=== PATIENT | female | born 1955 ===

== ENCOUNTER 2018-04-17 08:20 | Emergency (ER) | payer BC ==
--- NOTE | 2018-04-17 09:17 | UC ---
UC General HPI - HPI Summary HPI Summary: 63 yo female c/o back pain, starting approx 3pm yesterday. Was lying down when noticed the pain. Does not recall recent or remote injury. Adamantly denies hx of similar episode. No p/d/w. But feet felt cool yesterday. No bowel issues. No melena/ diarrhea. Last bm yesterday, normal. Denies urinary freq / urg / hematuria, discoloration. + pain bloating sensation in mid low pelvis. No rash. No sob / cp / palpitations. Placed otc pain patch over lower back, but didn't help. No fever / chills. 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 Pain Intensity: 8 - Allergy/Home Medications Allergies/Adverse Reactions: Allergies Allergy/AdvReac Type Severity Reaction Status Date / Time No Known Allergies Allergy Verified 04/17/18 08:43 Home Medications: Home Medications Atorvastatin* [Lipitor*] 10 mg PO 1700 04/17/18 [History Confirmed 04/17/18] Calcium Carbonate [Calcium/C/D] 1 chw PO DAILY 04/17/18 [History Confirmed 04/17] Methyl Salicylate/Menth/Camph [Medicated Pain Relieving] 1 pad TOPICAL ONCE PRN 04/17/18 [History Confirmed 04/17/18] Multivitamin [Multivitamins] 1 cap PO DAILY 04/17/18 [History Confirmed 04/17/18 ] [place]-3 Fatty Acids/Fish Oil [Fish Oil 1,000 mg Capsule] 1 tab PO DAILY [History Confirmed 04/17/18] PMH/Surg Hx/FS Hx/Imm Hx Previously Healthy: Yes - Surgical History Surgical History: None - Family History Known Family History: Positive: Unknown - Social History Alcohol Use: None Substance Use Type: None Smoking Status (MU): Never Smoked Tobacco Review of Systems All Other Systems Reviewed And Are Negative: Yes Constitutional: Positive: Negative, Other - see hpi Skin: Positive: Other - see hpi Eyes: Positive: Negative ENT: Positive: Negative Respiratory: Positive: Negative Cardiovascular: Positive: Negative Gastrointestinal: Positive: Other - see hpi Genitourinary: Positive: Other - see hpi Motor: Positive: Other - see hpi Neurovascular: Positive: Other - see hpi Musculoskeletal: Positive: Other: - see hpi Neurological: Positive: Other - see hpi Psychological: Positive: Negative Is Patient Immunocompromised?: No Physical Exam Triage Information Reviewed: Yes Appearance: Well-Nourished - lying down on exam table, able to sit up with assistance. Looks uncomfortable. Vital Signs: Initial Vital Signs Temp 98.8 F 04/17/18 08:35 Pulse 81 04/17/18 08:35 Resp 18 04/17/18 08:35 BP 106/67 04/17/18 08:35 Pulse Ox 96 04/17/18 08:35 Vital Signs Reviewed: Yes Eye Exam: Normal - grossly normal ENT Exam: Normal - grossly normal. MMM. Neck exam: Normal Neck: Positive: Supple, Nontender Respiratory Exam: Normal Respiratory: Positive: Chest non-tender, Lungs clear, Normal breath sounds, No respiratory distress, No accessory muscle use Cardiovascular Exam: Normal Cardiovascular: Positive: RRR, No Murmur, Pulses Normal, Brisk Capillary Refill Abdominal Exam: Other - + nabs. Soft. Mild tender mid pelvis region. + subj feeling of bloating. Bowel Sounds: Positive: Present Musculoskeletal Exam: Other - wrapping machine tender mid spinal areas approx T8 region and upper lumbar region. No crepitus. No rash. No + lateral back tenderness near affect mid spine. Mild tender iliac crest bilat, describes pain as radiating downwards. Pat DTR - 2+ equal Distal foot + sens LT Palpable dp/pt distal foot. CR good. No local foot swelling or discoloration. Moves feet and knees ok (on exam table). Gait not tested d/t pain. Course/Dx - Course Course Of Treatment: 11:00am reviewed CT reports. Call placed to Dr. Bermudez at [place]. 11:[address] Bermudez. She kindly will arrange to have pt f/u with her in a week. Meanwhile, will start analgesics (norco - XRT reviewed) and prednisone taper. D/w pt and daughter. Questions as posed answered to the best of my ability. Reviewed coa / tx plan. Istop Reference #: [id number] - Diagnoses Provider Diagnosis: Disc degeneration, lumbar Discharge - Sign-Out/Discharge Documenting (check all that apply): Patient Departure All imaging exams completed and their final reports reviewed: Yes - Discharge Plan Condition: Stable Disposition: HOME Prescriptions: Hydrocodone/Acetaminophen [[place] 5-325 Tablet] 1 each PO Q6HR PRN #20 tablet MDD 6 PRN Reason: Pain predniSONE TAB* [Deltasone 10 MG TAB*] 10 mg PO DAILY #20 tab Patient Education Materials: Osteoarthritis (ED), Lumbar Disc Herniation (ED), Degenerative Disc Disease (ED) Referrals: Mariely Bermudez MD [Primary Care Provider] - Additional Instructions: Follow up with Dr. Bermudez in about one week. Please go to the Emergency Department for worse or new problems. Rest as much as possible. Avoid heavy lifting at least the next 3 days. Do not drink alcohol, or operate heavy machinery while taking pain medication. The pain medication WILL cause constipation. Important to take stool softener every day, or even enema if needed for constipation. Drink lots of water. - Billing Disposition and Condition Condition: STABLE Disposition: Home
[2018-04-17] MEDS ORDERED: HYDROcodone/ACETAMIN 5-325 MG* 1 TAB PO ONE (09:41)
[2018-04-17 12:54] LABS: ABS Basophils 0 10^3/ul (0-0.2); ABS Eosinophils 0 10^3/ul (0-0.6); ABS Lymphocytes 0.6 10^3/ul (1.0-4.8); ABS Monocytes 0.4 10^3/ul (0-0.8); ABS Neutrophils 6.7 10^3/ul (1.5-7.7); ABS Nucleated RBC 0 10^3/ul; Eosinophil % 0.1 %; Hematocrit 40 % (35-47); Hemoglobin 13.3 g/dl (12.0-16.0); Lymphocyte % 8.3 %; Mean Corpuscular HGB Conc 33 g/dl (31-36); Mean Corpuscular Hemoglobin 30 pg (27-31); Mean Corpuscular Volume 90 fL (80-97); Nucleated Red Blood Cells % 0; Platelet Count 190 10^3/ul (150-450); Red Blood Count 4.45 10^6/ul (4.00-5.40); Red Cell Distribution Width 13 % (10.5-15); White Blood Count 7.8 10^3/ul (3.5-10.8)
[2018-04-17 13:04] LABS: EGFR Non-African American 95.4 (>60)
--- NOTE | 2018-04-18 17:04 | UC ---
- Progress Note Progress Note: 04/18/2018 [id number] elevated BUN/Creat ration=27.0 elevated CRP=8.[address] Nickerson spoke to PCP Dr Bermudez at [facility] and Pt was going to f/u w/ her PCP for further management on her symptoms. Please call back patient and inform her of lab abnormal lab results and strongly advised her she needs to f/u w/ her PCP in 2-3 days for further management Ely Roy PA-C Course/Dx - Diagnoses Provider Diagnoses: Disc degeneration, lumbar Discharge - Sign-Out/Discharge Documenting (check all that apply): Patient Departure - D/C home All imaging exams completed and their final reports reviewed: Yes - Discharge Plan Condition: Stable Disposition: HOME Prescriptions: Hydrocodone/Acetaminophen [[place] 5-325 Tablet] 1 each PO Q6HR PRN #20 tablet MDD 6 PRN Reason: Pain predniSONE TAB* [Deltasone 10 MG TAB*] 10 mg PO DAILY #20 tab Patient Education Materials: Osteoarthritis (ED), Lumbar Disc Herniation (ED), Degenerative Disc Disease (ED) Referrals: Mariely Bermudez MD [Primary Care Provider] - Additional Instructions: Follow up with Dr. Bermudez in about one week. Please go to the Emergency Department for worse or new problems. Rest as much as possible. Avoid heavy lifting at least the next 3 days. Do not drink alcohol, or operate heavy machinery while taking pain medication. The pain medication WILL cause constipation. Important to take stool softener every day, or even enema if needed for constipation. Drink lots of water. - Billing Disposition and Condition Condition: STABLE Disposition: Home
== END 2018-04-17 12:17 | disposition home or self-care (01) ==
LOC: UCEAST 08:20
DX: M51.36 Other intervertebral disc degeneration, lumbar region (principal)
CPT/HCPCS: 36415; 72128; 72131; 80048; 81003; 85025; 85652; 86140; 99202; G0463

== ENCOUNTER 2018-04-22 10:14 | Emergency (ER) | payer BC ==
[2018-04-22] MEDS ORDERED: Ketorolac INJ* 30 MG/ML 1 ML VIAL IM ONE (10:42)
[2018-04-22] MEDS ORDERED: LORazepam TAB(*) 1 MG PO ONE (10:42)
--- NOTE | 2018-04-22 11:10 | ED ---
Back Pain - HPI Summary HPI Summary: Pt is 63 y/o F who presents to ED c/o lower back pain for approximately a week. Rates her pain an 8/10 in severity at triage and describes it as aching. Pt was seen at for the same complaint on 04/17/18 and was given prednisone and hydrocodone. A CT was also completed during this visit and showed Degenerative Disc Disease as well as herniated discs. This morning her condition worsened, where she was unable to get out of bed. Movement exacerbates pain as well as changing position from sitting to standing. - History of Current Complaint Chief Complaint: EDBackInjuryPain Stated Complaint: BACK PAIN Time Seen by Provider: 04/22/18 10:20 Hx Obtained From: Patient Onset/Duration: Lasting Days, Still Present, Worse Since - this morning Onset/Duration: Started Days Ago, Still Present Back Pain Location: Is Discrete @ - lower back Severity Currently: Severe - 8/10 Pain Intensity: 8 Pain Scale Used: 0-10 Numeric Character: Aching Aggravating Symptom(s): Movement, Other - position change from sitting to standing Associated Signs And Symptoms: Negative: Fever - Allergies/Home Medications Allergies/Adverse Reactions: Allergies Allergy/AdvReac Type Severity Reaction Status Date / Time No Known Allergies Allergy Verified 04/22/18 10:20 Home Medications: Home Medications predniSONE TAB* [Deltasone 10 MG TAB*] 20 mg PO DAILY 04/22/18 [History Confirmed 04/22/18] PMH/Surg Hx/FS Hx/Imm Hx Endocrine/Hematology History: Denies: Hx Diabetes Musculoskeletal History: Reports: Hx Back Problems - Herniated Discs , Other Musculoskeletal History - Degenerative Disc Disease Infectious Disease History: No Infectious Disease History: Denies: Traveled Outside the [place] in Last 30 Days - Family History Known Family History: Positive: Other - Stroke - Social History Alcohol Use: None Substance Use Type: Reports: None Smoking Status (MU): Never Smoked Tobacco Review of Systems Negative: Fever Positive: Other - lower back pain All Other Systems Reviewed And Are Negative: Yes Physical Exam - Summary Physical Exam Summary: Appearance: The patient is well-nourished in no acute distress and in no acute pain. Skin: The skin is warm and dry and skin color reflects adequate perfusion. HEENT: The head is normocephalic and atraumatic. The pupils are equal and reactive. The conjunctivae are clear and without drainage. Nasal congestion and mildly erythematous throat. Mouth reveals moist mucous membranes. The external ears are intact. The ear canals are patent and without drainage. The tympanic membranes are intact. Neck: The neck is supple with full range of motion and non-tender. There are no carotid bruits. There is no neck vein distension. Respiratory: Chest is non-tender. Upper respiratory sounds. Cardiovascular: Heart is regular rate and rhythm. There is no murmur or rub auscultated. There is no peripheral edema and pulses are symmetrical and equal. Abdomen: The abdomen is soft and non-tender. There are normal bowel sounds heard in all four quadrants and there is no organomegaly palpated. Musculoskeletal: Tender in right lower back. Positive right sciatic area. Positive straight leg raise both sides. There is good capillary refill. There is no peripheral edema or calf tenderness elicited. Neurological: Patient is alert and oriented to person, place and time. The patient has symmetrical motor strength in all four extremities. Cranial nerves are grossly intact. Deep tendon reflexes are symmetrical and equal in all four extremities. Psychiatric: The patient has an appropriate affect and does not exhibit any anxiety or depression. Triage Information Reviewed: Yes Vital Signs On Initial Exam: Initial Vitals Temp Pulse Resp BP Pulse Ox 99 F 76 16 109/68 97 04/22/18 10:17 04/22/18 10:17 04/22/18 10:17 04/22/18 10:17 04/22/18 10:17 Vital Signs Reviewed: Yes Diagnostics - Vital Signs Vital Signs Temp Pulse Resp BP Pulse Ox 04/22/18 10:51 17 04/22/18 10:17 99 F 76 16 109/68 97 - Laboratory Lab Statement: Any lab studies that have been ordered have been reviewed, and results considered in the medical decision making process. Back Pain Course/Dx - Course Course Of Treatment: Ms. Quarles was recently seen at the [facility] for low back pain. A CT was obtained which showed multiple levels of degenerative disc disease and at least one level of herniated disc. She was given a prednisone taper as well as [place] for pain. Her pain was worse this morning she was unable to get out of bed secondary to it. She's been moving her bowels and bladder normally and is denying any weakness. On exam she has a positive straight leg raise referred to the right sciatic area and I think there is some muscle tension and spasm component to this. She was given Ativan as a muscle relaxer here as well as a shot of Toradol and got significant relief. She was able to ambulate here in the department. Labs were obtained when she was at the [facility] and revealed a very slightly elevated glucose as well as a marginally elevated sedimentation rate and CRP. For some reason she was called about these labs and came in here concerned about the results. I reassured her recommended routine follow-up with her PCP - Diagnoses Provider Diagnoses: Sciatica Discharge - Sign-Out/Discharge Documenting (check all that apply): Patient Departure - Discharge - Discharge Plan Condition: Fair Disposition: HOME Prescriptions: LORazepam TAB(*) [Ativan TAB(*)] 0.5 mg PO Q6H PRN #20 tab MDD 4 PRN Reason: Pain LORazepam TAB(*) [Ativan 0.5 MG TAB (*)] 0.5 mg PO Q6H PRN #10 tab MDD 3 PRN Reason: Pain Patient Education Materials: Sciatica (ED) Referrals: Mariely Bermudez MD [Primary Care Provider] - 3 Days Additional Instructions: Follow up with PCP. RETURN TO ED FOR ANY NEW OR WORSENING SYMPTOMS. - Billing Disposition and Condition Condition: FAIR Disposition: Home - Attestation Statements Document Initiated by Jakobibe: Yes Documenting Scribe: Alfred Silverio Provider For Whom Telly is Documenting (Include Credential): Dr. Zoran Mclean MD Scribe Attestation: IAlfred, scribed for Dr. Zoran Mclean MD on 04/22/18 at 1533. Scribe Documentation Reviewed: Yes Provider Attestation: The documentation as recorded by the scribeAlfred accurately reflects the service I personally performed and the decisions made by me, Dr. Zoran Mclean MD Status of Scribe Document: Viewed
[2018-04-22 12:37] VITALS: BP 100/59
== END 2018-04-22 12:36 | disposition home or self-care (01) ==
LOC: ED 10:14
DX: M54.31 Sciatica, right side (principal)
CPT/HCPCS: 96372; 99282; A9270-GY; J1885